=== PATIENT | male | born 1965 | race Caucasian/White ===

== ENCOUNTER 2021-11-26 07:25 | Day surgery (SDC) | payer OTHER ==
[~2021-11-26] VITALS: Ht 175.3 cm; Wt 95.5 kg
[~2021-11-26 07:25] MED LIST: ATENOLOL100 MG PO; DILTIAZEM ER240 MG PO; DOXAZOSIN MESYLA2 MG PO; LISINOPRIL40 MG PO; PERCOCET 7.5-31 EACH PO
[2021-11-26] MEDS ORDERED: CHLORTHALIDONE25 MG PO (07:52)
--- NOTE | 2021-11-26 09:15 | NUR ---
11/26/21 0914 Lucretia Cooley 4559 PT ARRIVED IN PACU SLEEPY WITH NO C/O'S. ABD SOFT AND PASSING FLATUS. 0910 AT BEDSIDE TALKING TO PT.
--- NOTE | 2021-11-27 22:00 | OR ---
[facility] [address], [place] [address] Signed DATE OF OPERATION: 11/26/2021 SURGEON: Ashley Alcala MD PREOPERATIVE DIAGNOSIS: Screening colonoscopy. POSTOPERATIVE DIAGNOSES: 1. Sigmoid diverticulosis. 2. Small polyp at 80 cm. PROCEDURE: Total colonoscopy to cecum with cold morcellation polypectomy x1. ANESTHESIA: Intravenous sedation; fentanyl 100 mcg, Versed 8 mg. INDICATION: This 56-year-old white man is a patient of HEENA Pope. He has been referred for screening colonoscopy. He has no symptoms of bleeding, diarrhea, or constipation. He has no family history of colon cancer. He is admitted at this time to undergo screening colonoscopy. He understands the risk of bleeding, perforation and other unforeseen complications. Understanding this, he wished to proceed. FINDINGS: The prep was excellent. Complete colonoscopy was undertaken to the cecum without question. He had scattered diverticula of the sigmoid and left colon and a small flat polyp at 80 cm, which was excised completely with cold morcellation technique. There were internal hemorrhoidal changes as well, but not bleeding or otherwise problematic at this time. DESCRIPTION OF PROCEDURE: The patient was brought to the endoscopy suite and placed in lateral decubitus position, given intravenous sedation to the point of slurred speech and nystagmus. Digital rectal examination was normal including the prostate. An Olympus video colonoscope was passed in the rectum and manipulated throughout the colon noting diverticula of the sigmoid. The scope was ultimately advanced to the cecum. The ileocecal valve and appendiceal orifice were well visualized. The scope was withdrawn from that point and examination throughout showed no sign of abnormality until Electronically Signed By: ASHLEY ALCALA MD 11/27/21 0367 PATIENT NAME: CASH BARCENAS OPERATIVE REPORT DATE OF : 69 REPORT #: [id number] PHYSICIAN: ASHLEY ALCALA MD PCP: AMY ALEXIS REPORT IS CONFIDENTIAL AND NOT TO BE RELEASED WITHOUT AUTHORIZATION [facility] [address] [place] [id number] Signed about 80 cm from the anal verge, where a small flat polyp was noted, this was excised with cold morcellation technique without problem and completely resected so far as could be told. Further withdrawal demonstrated diverticula of the sigmoid colon. Retroflexed view of the rectum was normal except for some internal hemorrhoidal changes. The scope was removed and the patient was taken to the recovery room in good condition. CONCLUDING DIAGNOSES: 1. Diverticulosis. 2. Small polyp. PLAN: Recommend repeat colonoscopy in 5 years, sooner if symptoms should occur. Would recommend maintain high-fiber diet. He will return to the ongoing care of HEENA Pope. If there are any problems, he will let me know. MD JAIMEE Quiles/JOSÉ MIGUEL /[id number] cc: HEENA Pope Copies: AMY ALEXIS ~ Electronically Signed By: ASHLEY ALCALA MD 11/27/21 2200 PATIENT NAME: CASH BARCENAS OPERATIVE REPORT DATE OF : 69 REPORT #: [id number] PHYSICIAN: ASHLEY ALCALA MD PCP: AMY ALEXIS REPORT IS CONFIDENTIAL AND NOT TO BE RELEASED WITHOUT AUTHORIZATION
== END 2021-11-26 09:55 | disposition home or self-care (01) ==
LOC: OPS 07:25 → DS 07:25 → OPS 07:30
PROVIDERS: ATTEND Surgery
PROC: 0DBE8ZZ Excision of Large Intestine, Via Natural or Artificial Opening Endoscopic (ICD-10-PCS; principal; 2021-11-26 08:30)
DX: Z12.11 Encounter for screening for malignant neoplasm of colon (principal); K63.5 Polyp of colon; K57.30 Diverticulosis of large intestine without perforation or abscess without bleeding; I10 Essential (primary) hypertension
CPT/HCPCS: 99153; G0500; J2250; J3010; J7121